=== PATIENT | female | born 1955 | race Caucasian/White ===

== ENCOUNTER → 2020-09-15 13:23 | Outpatient (CLI) | payer BC, SELFPAY ==
--- NOTE | ~2020-09-15 | MM_ITS ---
EXAMINATION: MM screening ana BI w bella HISTORY: Screening TECHNIQUE: Craniocaudal and mediolateral oblique 3-D tomosynthesis images were obtained and synthetic 2-D images were generated. CAD analysis was submitted and interpreted. COMPARISON: Comparison to multiple prior studies sequentially, with oldest reviewed study dated 05/15. BREAST PARENCHYMAL COMPOSITION: The breasts are heterogeneously dense, which may obscure small masses . FINDINGS: There is no evidence of suspicious mass, calcification, or architectural distortion to sugg est malignancy in either breast. There has been no suspicious interval change. IMPRESSION: 1. No mammographic evidence of malignancy. 2. Recommend routine screening mammography in one year. BI-RADS Category 1: Negative Reviewed, dictated and finalized at location A. [employer]
== END ==
PROVIDERS: Visit Provider Obstetrics & Gynecology Gynecology
DX: Z12.31 Encounter for screening mammogram for malignant neoplasm of breast (principal)
CPT/HCPCS: 77063; 77067

== ENCOUNTER → 2021-10-19 12:13 | Outpatient (CLI) | payer BC, SELFPAY ==
--- NOTE | ~2021-10-19 | DEXA_ITS ---
Bone Density Report Name: CHAPO ALEXANDER Age: 66 Sex: Female Ethnicity: White Date of : 1955 Indication: monitoring treatment; height loss; Referring Provider: EDUARDO GLYNN Study: Bone densitometry was performed. Exam Date: October 19, 2021 Accession number: [id number] Bone Density: Region BMD T-score Z-score Classification AP Spine (L1, L2, L4) 0.920 -1.0 0.7 Normal Femoral Neck (Left) 0.586 -2.4 -0.9 Osteopenia Total Hip (Left) 0.888 -0.4 0.7 Normal Femoral Neck (Right) 0.581 -2.4 -0.9 Osteopenia Total Hip (Right) 0.835 -0.9 0.3 Normal Total Hip Mean 0.862 -0.7 0.5 Normal World Health Organization criteria for BMD impression classify patients as: Normal (T-score at or above -1.0), Osteopenia (T-score between -1.0 and -2.5), or Osteoporosis (T-score at or below -2.5). 10-year Fracture Risk: FRAX not reported because: Treated for osteoporosis Previous Exams: Region Exam Age BMD T-score BMD Change BMD Change Date g/cm2 vs Baseline vs Previous AP Spine(L1, L2, L4) 10/19/2021 66 0.920 -1.0 0.030* -0.015 08/07/2019 64 0.935 -0.9 0.045* 0.008 06/03/2017 61 0.927 -1.0 0.036* 0.076* 10/20/2014 59 0.851 -1.7 -0.039* -0.039* 10/06/2012 57 0.890 -1.3 Total Hip(Left) 10/19/2021 66 0.888 -0.4 -0.003 0.010 08/07/2019 64 0.879 -0.5 -0.013 -0.002 06/03/2017 61 0.881 -0.5 -0.010 0.043* 10/20/2014 59 0.838 -0.9 -0.053* -0.053* 10/06/2012 57 0.891 -0.4 Total Hip(Right) 10/19/2021 66 0.835 -0.9 -0.007 -0.001 08/07/2019 64 0.836 -0.9 -0.006 0.027 06/03/2017 61 0.809 -1.1 -0.033* 0.031* 10/20/2014 59 0.778 -1.3 -0.064* -0.064* 10/06/2012 57 0.842 -0.8 *Denotes significance at 95% confidence level, LSC for AP Spine = 0.022 g/cm2, LSC for Total Hip = 0.027 g/cm2 Clinical Information Provided by Patient: Is being treated for osteoporosis Has used the following medications: Boniva (i.e. ibandronate), Vitamin D, Calcium Patient maximum height was 65.5 Menopause Age: 57 No regular weight bearing exercise Onset of menses at age 15 Number of children 4 Impression: The patient has low bone mass, based on the Left Femoral Neck T-score. No significant bone loss was observed.
--- NOTE | ~2021-10-19 | MM_ITS ---
EXAMINATION: MM screening ana BI w bella HISTORY: Screening TECHNIQUE: Craniocaudal and mediolateral oblique 3-D tomosynthesis images were obtained and synthetic 2-D images were generated. CAD analysis was submitted and interpreted. COMPARISON: Comparison to multiple prior studies sequentially, with oldest reviewed study dated 05/15. BREAST PARENCHYMAL COMPOSITION: There are scattered areas of fibroglandular density. FINDINGS: There is no evidence of suspicious mass, calcification, or architectural distortion to sugg est malignancy in either breast. There has been no suspicious interval change. IMPRESSION: 1. No mammographic evidence of malignancy. 2. Recommend routine screening mammography in one year. 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
== END ==
PROVIDERS: PCP Internal Medicine; Visit Provider Obstetrics & Gynecology Gynecology
DX: Z12.31 Encounter for screening mammogram for malignant neoplasm of breast (principal); Z78.0 Asymptomatic menopausal state; M85.89 Other specified disorders of bone density and structure, multiple sites
CPT/HCPCS: 77063; 77067; 77080

== ENCOUNTER → 2022-10-31 10:07 | Outpatient (CLI) | payer MEDICARE, SELFPAY ==
--- NOTE | ~2022-10-31 | MM_ITS ---
EXAMINATION: MM screening ana BI w bella HISTORY: Screening mammogram TECHNIQUE: Craniocaudal and mediolateral oblique 3-D tomosynthesis images were obtained and synthetic 2-D images were generated. CAD analysis was submitted and interpreted. COMPARISON: October 19, 2021, September 15, 2020, August 07, 2019 bilateral screening mammogram exami nations BREAST PARENCHYMAL COMPOSITION: The breasts are heterogeneously dense, which may obscure small masses . FINDINGS: There is no evidence of suspicious mass, calcification, or architectural distortion to sugg est malignancy in either breast. There has been no suspicious interval change. IMPRESSION: 1. No mammographic evidence of malignancy. 2. Recommend routine screening mammography in one year. 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
== END ==
PROVIDERS: PCP Internal Medicine; Visit Provider Obstetrics & Gynecology Gynecology
DX: Z12.31 Encounter for screening mammogram for malignant neoplasm of breast (principal)
CPT/HCPCS: 77063; 77067

== ENCOUNTER → 2023-11-04 10:43 | Outpatient (CLI) | payer MEDICARE, SELFPAY ==
--- NOTE | ~2023-11-04 | DEXA_ITS ---
Bone Density Report Name: CHAPO ALEXANDER Age: 68 Sex: Female Ethnicity: White Date of : 1955 Indication: postmenopausal; screening for osteoporosis; prior fracture; Referring Provider: EDUARDO GLYNN Study: Bone densitometry was performed. Exam Date: November 04, 2023 Accession number: [id number] Bone Density: Region BMD T-score Z-score Classification AP Spine (L1-L4) 0.955 -0.8 1.0 Normal Femoral Neck (Left) 0.577 -2.5 -0.9 Osteoporosis Total Hip (Left) 0.848 -0.8 0.5 Normal Femoral Neck (Right) 0.586 -2.4 -0.8 Osteopenia Total Hip (Right) 0.796 -1.2 0.1 Osteopenia Total Hip Mean 0.822 -1.0 0.3 Normal World Health Organization criteria for BMD impression classify patients as: Normal (T-score at or above -1.0), Osteopenia (T-score between -1.0 and -2.5), or Osteoporosis (T-score at or below -2.5). 10-year Fracture Risk: FRAX not reported because: Some T-score for Spine Total or Hip Total or Femoral Neck at or below -2.5 Prior hip or vertebral fracture Previous Exams: Region Exam Age BMD T-score BMD Change BMD Change Date g/cm2 vs Baseline vs Previous AP Spine(L1-L4) 11/04/2023 68 0.955 -0.8 0.052* 0.017 06/03/2017 61 0.938 -1.0 0.035* 0.064* 10/20/2014 59 0.874 -1.6 -0.029* -0.029* 10/06/2012 57 0.903 -1.3 Total Hip(Left) 11/04/2023 68 0.848 -0.8 -0.043* -0.040* 10/19/2021 66 0.888 -0.4 -0.003 0.010 08/07/2019 64 0.879 -0.5 -0.013 -0.002 06/03/2017 61 0.881 -0.5 -0.010 0.043* 10/20/2014 59 0.838 -0.9 -0.053* -0.053* 10/06/2012 57 0.891 -0.4 Total Hip(Right) 11/04/2023 68 0.796 -1.2 -0.046* -0.039* 10/19/2021 66 0.835 -0.9 -0.007 -0.001 08/07/2019 64 0.836 -0.9 -0.006 0.027 06/03/2017 61 0.809 -1.1 -0.033* 0.031* 10/20/2014 59 0.778 -1.3 -0.064* -0.064* 10/06/2012 57 0.842 -0.8 *Denotes significance at 95% confidence level, LSC for AP Spine = 0.022 g/cm2, LSC for Total Hip = 0.027 g/cm2 Clinical Information Provided by Patient: Have had a previous hip or vertebral fracture Has had a low trauma fracture Has used the following medications: Vitamin D, Calcium, MTV Patient maximum height was 65.5 Menopause Age: 57 Drinks caffeinated beverages Onset of menses at age 15 Number of children 4 ----
--- NOTE | ~2023-11-04 | MM_ITS ---
EXAMINATION: MM screening ana BI w bella HISTORY: Screening mammogram TECHNIQUE: Craniocaudal and mediolateral oblique 3-D tomosynthesis images were obtained and synthetic 2-D images were generated. CAD analysis was submitted and interpreted. COMPARISON: 10/31/2022, 10/19/2021, 09/15/2020 bilateral screening mammogram examinations BREAST PARENCHYMAL COMPOSITION: The breasts are heterogeneously dense, which may obscure small masses . FINDINGS: There is no evidence of suspicious mass, calcification, or architectural distortion to sugg est malignancy in either breast. There has been no suspicious interval change. IMPRESSION: 1. No mammographic evidence of malignancy. 2. Recommend routine screening mammography in one year. 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
== END ==
PROVIDERS: PCP Obstetrics & Gynecology Gynecology; Visit Provider Obstetrics & Gynecology Gynecology
DX: Z12.31 Encounter for screening mammogram for malignant neoplasm of breast (principal); Z78.0 Asymptomatic menopausal state; M81.0 Age-related osteoporosis without current pathological fracture; M85.851 Other specified disorders of bone density and structure, right thigh
CPT/HCPCS: 77063; 77067; 77080

== ENCOUNTER 2024-11-05 11:22 | Outpatient (CLI) | payer MEDICARE, SELFPAY ==
--- NOTE | ~2024-11-05 | MM_ITS ---
EXAMINATION: MM screening ana BI w bella HISTORY: Screening mammogram TECHNIQUE: Craniocaudal and mediolateral oblique 3-D tomosynthesis images were obtained and synthetic 2-D images were generated. CAD analysis was submitted and interpreted. COMPARISON: 11/04/2023, 10/31/2022, 10/19/2021 BREAST PARENCHYMAL COMPOSITION:Dense: The breasts are heterogeneously dense, which may obscure small masses. FINDINGS: No suspicious mass, calcification, or architectural distortion are identified in either rosaline ast to suggest malignancy. There has been no suspicious interval change. IMPRESSION: No mammographic evidence of malignancy. Recommend routine screening mammography in one year. BI-RADS Category 1: Negative Reviewed, dictated and finalized at location . 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
== END 2024-11-05 11:23 | disposition home or self-care (01) ==
LOC: MICIMG 11:22
PROVIDERS: PCP Obstetrics & Gynecology Gynecology; Visit Provider Obstetrics & Gynecology Gynecology
DX: Z12.31 Encounter for screening mammogram for malignant neoplasm of breast (principal)
CPT/HCPCS: 77063; 77067